=== PATIENT | female | born 1955 | race African-American/Black ===

== ENCOUNTER 2017-03-10 23:59 | Emergency (ER) | payer MEDICAID ==
--- NOTE | ~2017-03-10 | CT71 ---
[facility] A Service [facility] RADIOLOGY TEXT RESULTS PATIENT: NABEEL AUGUSTINE LOCATION: [facility] : 59 UNIT #: [id number] AGE: [address]: Stef Lopez MD SEX: F ORDER DR: [id number] [address] [id number] [facility]. [place], [place] [address] [id number] MR#: [id number] Acc #: [id number] NAME: NABEEL AUGUSTINE : 1955 SEX: F STUDY DATE/TIME: 03/11/2017 0:46 UNIT: [facility] ROOM: STUDY DESCRIPTION: CT Head Wo Contrast Attending Physician: Stef Lopez M.D. Ordering Physician: Stef Lopez M.D. Primary Care Physician: Stef Reed D.O. MEDICAL IMAGING REPORT This report is preliminary unless electronic signature is present EXAM Noncontrast CT head DATE at 00:46 HISTORY Headache since this morning, today. Sharp pain at the top of the head. Hyperlipidemia. COMPARISON None. TECHNIQUE This CT exam was performed with one or more of the following radiation dose reduction techniques: automatic control, adjustment of mA and/or kV according to patient size, and iterative reconstruction. FINDINGS No intracranial hemorrhage, mass lesion, mass effect or midline shift is seen and there is no evidence of acute or evolving infarct. Ventricular configuration is normal. Mild mucosal thickening is demonstrated within the left frontal sinus. Mastoid air cells are clear. Calvaria is within normal limits. IMPRESSION 1. Mild left frontal sinus mucosal thickening. 2. No acute intracranial findings. Dictated by... Mandi Jackson M.D. THIS IS AN ELECTRONICALLY VERIFIED REPORT [facility] A Service [facility] RADIOLOGY TEXT RESULTS PATIENT: NABEEL AUGUSTINE LOCATION: [facility] : 59 UNIT #: [id number] AGE: [address]: Stef Lopez MD SEX: F ORDER DR: Mandi Jackson M.D. at 03/11/2017 6:01 AM JAMEE/yenny TD: 03/11/2017 04:11 JOB #: [id number] MEDICAL IMAGING REPORT Page 1 of 1 COPY
[~2017-03-10 23:59] MED LIST: CEFTIN PO; HYDROCODON-ACE1 EAC9 PO; LISINOPRIL; LISINOPRIL10 MG PO; PHENERGAN25 M1 DOB; PRINIVIL20 M1 PO; ULTRAM PO
== END 2017-03-11 02:40 | disposition home or self-care (01) ==
LOC: CED 23:59
DX: G44.209 Tension-type headache, unspecified, not intractable (principal); I10 Essential (primary) hypertension; F17.200 Nicotine dependence, unspecified, uncomplicated
CPT/HCPCS: 70450; 96372; 99284; J1885